=== PATIENT | female | born 1970 | race African-American/Black ===

== ENCOUNTER 2022-01-15 11:43 | Emergency (ER) | payer OTHER ==
[2022-01-15 11:58] VITALS: BP 138/89; PULSE 89; TEMP 98.6; BMI 39.4
[2022-01-15] MEDS ORDERED: IBUPROFEN 400 MG TABLET (FP) PO ONE ×2 (14:42→14:53)
[2022-01-15] MEDS ORDERED: IBUPROFEN 600 MG TABLET (FP) PO ONE (14:43)
== END 2022-01-15 14:53 | disposition home or self-care (01) ==
LOC: JERFT 11:43
DX: S63.501A Unspecified sprain of right wrist, initial encounter (principal); S80.01XA Contusion of right knee, initial encounter; W19.XXXA Unspecified fall, initial encounter
CPT/HCPCS: 73110-TC-RT-FY; 73130-TC-RT-FY; 73562-TC-RT-FY; 99284-25

== ENCOUNTER 2023-07-15 12:33 | Observation (INO) | payer OTHER ==
[2023-07-15 14:04] VITALS: BMI 37.8
[2023-07-15] MEDS ORDERED: ACETAMINOPHEN 500 MG TABLET (FP) PO ONE (15:54)
[2023-07-15] MEDS ORDERED: ONDANSETRON *ODT* 4 MG TABLET SL ONE (15:54)
[2023-07-15] MEDS ORDERED: ACETAMINOPHEN 500 MG TABLET (FP) ONE (16:18)
[2023-07-15] MEDS ORDERED: ONDANSETRON *ODT* 4 MG TABLET ONE (16:18)
[2023-07-15 16:44] LABS: BASO % 0.4 % (0-2.0); EOS % 0.2 % (0-4.5); HEMATOCRIT 38.7 % (32.4-45.2); HEMOGLOBIN 12.7 GM/dL (10.7-15.3); LYMPH % 31.6 % (8-40); MCH 25.8 pg (25.7-33.7); MCHC 32.9 g/dl (32.0-36.0); MEAN CELL VOLUME 78.3 fl (80-96); MONO % 5.2 % (3.8-10.2); NEUT % 62.6 % (42.8-82.8); PLATELET COUNT 371 10^3/uL (134-434); RBC 4.94 M/mm3 (3.60-5.2); RDW 13.4 % (11.6-15.6); WHITE BLOOD COUNT 12.3 K/mm3 (4.0-10.0)
[2023-07-15 16:54] LABS: EPI CELLS 30 /uL (0-25.1); HYALINE CASTS 0 /uL (0-3.1); URINE APPEARANCE CLEAR; URINE BACTERIA 272 /uL (0-1359); URINE BILIRUBIN NEGATIVE (NEGATIVE); URINE COLOR YELLOW; URINE GLUCOSE (UA) NEGATIVE (NEGATIVE); URINE KETONE NEGATIVE (NEGATIVE); URINE LEUK ESTERASE 1+ (NEGATIVE); URINE NITRITE NEGATIVE (NEGATIVE); URINE PROTEIN TRACE (NEGATIVE); URINE RBC 6 /uL (0-23.9); URINE UROBILINOGEN 0.2 mg/dL (0.2-1.0); URINE WBC 64 /uL (0-25.8)
[2023-07-15 17:10] LABS: ALBUMIN 3.6 g/dl (3.4-5.0); BLOOD UREA NITROGEN 10.5 mg/dL (7-18); CALCIUM 9.4 mg/dL (8.5-10.1)
[2023-07-15 17:13] LABS: CREATININE 0.8 mg/dL (0.55-1.3)
[2023-07-15 17:15] LABS: BILIRUBIN,TOTAL 0.3 mg/dL (0.2-1); TOT PROT 8.5 g/dl (6.4-8.2)
[2023-07-15] MEDS ORDERED: SODIUM CHLORIDE 0.9% 500 ML INFUS.BAG IV ONE (19:32)
[2023-07-15] MEDS ORDERED: ACETAMINOPHEN 1000 MG/100 ML BAG IVPB PRN (22:57)
[2023-07-15] MEDS ORDERED: CEFTRIAXONE 1 GM/50 ML BAG ONE (23:10)
[2023-07-16] MEDS: DEXTROSE 5%-0.45% SALINE 1,000 ML IV SCH ×2 (06:28→22:44)
[2023-07-16 07:27] LABS: BASO % 0.3 % (0-2.0); EOS % 0.4 % (0-4.5); HEMATOCRIT 34.1 % (32.4-45.2); HEMOGLOBIN 11.4 GM/dL (10.7-15.3); LYMPH % 33.1 % (8-40); MCH 26.3 pg (25.7-33.7); MCHC 33.3 g/dl (32.0-36.0); MEAN PLT VOLUME 8.2 fl (7.5-11.1); NEUT % 60.2 % (42.8-82.8); PLATELET COUNT 334 10^3/uL (134-434); RBC 4.31 M/mm3 (3.60-5.2); RDW 13.3 % (11.6-15.6); WHITE BLOOD COUNT 9.7 K/mm3 (4.0-10.0)
[2023-07-16 07:35] LABS: POTASSIUM 3.5 mmol/L (3.5-5.1)
[2023-07-16 07:37] LABS: ALBUMIN 3.2 g/dl (3.4-5.0); CALCIUM 8.9 mg/dL (8.5-10.1)
[2023-07-16 07:38] LABS: BLOOD UREA NITROGEN 9.2 mg/dL (7-18)
[2023-07-16 07:41] LABS: CREATININE 0.7 mg/dL (0.55-1.3)
[2023-07-16 07:42] LABS: TOT PROT 7.4 g/dl (6.4-8.2)
[2023-07-16 07:43] LABS: BILIRUBIN,TOTAL 0.3 mg/dL (0.2-1)
[2023-07-16] MEDS: ENOXAPARIN NA (PORCINE) 40 MG/0.4 ML DISP.SYRIN SQ SCH (09:17)
[2023-07-16] MEDS: CEFTRIAXONE 1 GM in DEXTROSE 5%-WATER - 50 ML IVPB SCH (09:18)
[2023-07-16 12:38] LABS: N-TERMINAL BNP 7.9 pg/ml (5-125)
[2023-07-16] MEDS: PANTOPRAZOLE 40 MG TABLET PO SCH (18:05)
[2023-07-17] MEDS: ENOXAPARIN NA (PORCINE) 40 MG/0.4 ML DISP.SYRIN SQ SCH (09:32)
[2023-07-17] MEDS: PANTOPRAZOLE 40 MG TABLET PO SCH (09:32)
[2023-07-17] MEDS: CEFTRIAXONE 1 GM in DEXTROSE 5%-WATER - 50 ML IVPB SCH (09:32)
[2023-07-17] MEDS: ACETAMINOPHEN 1000 MG/100 ML BAG IVPB PRN (12:38)
[2023-07-17] MEDS: DEXTROSE 5%-0.45% SALINE 1,000 ML IV SCH (23:58)
[2023-07-18] MEDS: ACETAMINOPHEN 1000 MG/100 ML BAG IVPB PRN (06:10)
[2023-07-18] MEDS: ENOXAPARIN NA (PORCINE) 40 MG/0.4 ML DISP.SYRIN SQ SCH (09:36)
[2023-07-18] MEDS: PANTOPRAZOLE 40 MG TABLET PO SCH (09:36)
[2023-07-18] MEDS: LOSARTAN POTASSIUM 50 MG TABLET PO SCH (14:45)
[2023-07-18] MEDS: HYDROCHLOROTHIAZIDE 25 MG TABLET (FP) PO SCH (14:45)
[2023-07-18] MEDS: PRAMIPEXOLE DIHYDROCHLORIDE 0.25 MG TABLET PO SCH (22:19)
[2023-07-18] MEDS: TOPIRAMATE 25 MG TABLET PO SCH (22:19)
[2023-07-19] MEDS ORDERED: NADOLOL 40 MG TABLET (FP) PO SCH (10:00)
[2023-07-19] MEDS: PRAMIPEXOLE DIHYDROCHLORIDE 0.25 MG TABLET PO SCH (10:20)
[2023-07-19] MEDS: ENOXAPARIN NA (PORCINE) 40 MG/0.4 ML DISP.SYRIN SQ SCH (10:20)
[2023-07-19] MEDS: PANTOPRAZOLE 40 MG TABLET PO SCH (10:21)
[2023-07-19] MEDS: TOPIRAMATE 25 MG TABLET PO SCH (10:21)
[2023-07-19] MEDS: HYDROCHLOROTHIAZIDE 25 MG TABLET (FP) PO SCH (10:22)
[2023-07-19] MEDS: LOSARTAN POTASSIUM 50 MG TABLET PO SCH (10:22)
[2023-07-19 12:33] VITALS: RESP 20
[2023-07-19] MEDS ORDERED: ONDANSETRON 4 MG/2 ML VIAL IVPUSH PRN (15:04)
[2023-07-19] MEDS ORDERED: ACETAMINOPHEN 325 MG TABLET (FP) PO PRN (15:04)
[2023-07-19 16:38] VITALS: BP 147/86; PULSE 94; TEMP 98.3
== END 2023-07-19 18:07 | disposition home or self-care (01) ==
LOC: JER 12:33 → UNDOADMOB 17:58 → JERBED 17:58 → INTOOBSV 22:56 → OBSVTOIN 22:56 → JERBED 07-16 01:29 → J4W 07-16 01:29 → JERBED 07-16 11:42
PROVIDERS: ADMIT Internal Medicine; ATTEND Internal Medicine
PROC: 3E023GC Introduction of Other Therapeutic Substance into Muscle, Percutaneous Approach (ICD-10-PCS; principal; 2023-07-16)
PROC: 3E03329 Introduction of Other Anti-infective into Peripheral Vein, Percutaneous Approach (ICD-10-PCS; 2023-07-16)
PROC: 3E033GC Introduction of Other Therapeutic Substance into Peripheral Vein, Percutaneous Approach (ICD-10-PCS; 2023-07-16)
PROC: 3E0337Z Introduction of Electrolytic and Water Balance Substance into Peripheral Vein, Percutaneous Approach (ICD-10-PCS; 2023-07-16)
DX: N39.0 Urinary tract infection, site not specified (principal); R11.10 Vomiting, unspecified; E11.9 Type 2 diabetes mellitus without complications; I10 Essential (primary) hypertension; R07.9 Chest pain, unspecified
CPT/HCPCS: 0241U-QW; 36415; 70450-TC; 80053; 80061; 81003; 82962; 83036; 83880; 84443; 84484; 85025; 87040; 87086; 93005; 93010; 93306-TC; 96361; 96365; 96372; 96375; 96376; 99285-25; G0378; Q0162